=== PATIENT | male | born 1930 | race Caucasian/White ===

== ENCOUNTER → 2016-11-23 | Outpatient (CLI) | payer MEDICARE, OTHER ==
[~2016-11-23] MED LIST: ACET-1359 PO; ASPI-781 PO; CELE200C PO; EZET1TAB50 PO; FAMO-18 PO; IODIXANOL LOCM 100 ML BTL ONE; IODIXANOL LOCM 50 ML BTL ONE; LANS15CA PO; LANS30TA6 PO; LISI-329 PO; METO1TAB13 PO; METO25TA7 PO; NITROGLYCERIN AEROSOL (4.9 GM) ONE; OXYC-281 PO; SOD CHLORIDE 0.9% 100 ML ONE; UDREG PO
[2016-11-23 09:22] LABS: CREATININE 1.57 mg/dl (0.61-1.24)
--- NOTE | 2016-11-23 21:00 | RADRPT ---
PROCEDURE: CTA OF THE HEART AND CORONARY ARTERIES WITH CONTRAST CT CALCIUM SCORE CLINICAL INDICATION: Coronary artery disease, chest pain COMPARISON: CT chest 09/26/2013 TECHNIQUE: CT calcium score performed without intravenous contrast. Multiphasic ECG-gated volumetri c acquisition from the ascending aorta to the diaphragm performed with intravenous contrast on a hig h-resolution multi detector scanner with multiphasic reconstructions. Multiplanar reconstructions, t hree-dimensional reconstructions, as well as maximal intensity projection images are produced and re viewed. One or more of the following dose reduction techniques were used: Automated exposure control ; Adjustment of the mA and/or kV according to patient size; Use of iterative reconstruction techniqu e; ECG dose modulation. CTDI = 11, 106, 69 mGy. DLP = 1689 mGy-cm. Stenosis classification of vessels greater than 1.5 mm in diameter: None0% Minimal1-24% Fxum66-69% Icdmwyuv15-05% Njghzl83-64% Oezgxsxm748% (When a vessel appears focally occluded with distal reconstitution there may be trac e patency which is below the resolution of the examination or collateral pathways may exist.) CONTRAST: 100 mL of Omnipaque 350 intravenously without adverse event. FINDINGS: CORONARY CT ANGIOGRAM: Overall quality of the CT angiographic examination is partially degraded due to premature contractio ns and very elevated calcium score. Normal origins of the coronary arteries are present. The coronary artery system is right dominant. Total calcium score: 2067.5 excluding a proximal right coronary artery stent Right Coronary Artery: Dense plaque at the origin of the right coronary artery obscures visualizatio n of the lumen and is subjectively concerning for a 50% stenosis. Attenuation artifact within the p atients proximal right coronary artery 16 mm long stent obscures visualization of the lumen, degree of stenosis is indeterminate. Artifact from premature contractions obscures visualization of the mi d segment of the vessel were partially circumferential plaques are present. The distal portion of t he vessel is relatively well visualized with a focal noncalcified plaque producing 50% stenosis. The posterior lateral branch appears to enhance normally. The posterior descending branch is too small to accurately characterize. Left Main Coronary Artery: Calcified plaque throughout the vessel produces less than 10% stenosis. Left Anterior Descending Coronary Artery: The proximal and mid segments of the vessel are diffusely diseased with multifocal plaques producing predominately less than 10% stenosis. 30 mm from the maxine gin of the vessel is an apparent focal noncalcified plaque which produces 50 - 70% stenosis Visualized septal and diagonal branches: These are small in caliber but only demonstrate minimal irr egularities. Left Circumflex Coronary Artery: 25 - 50% stenosis of the proximal segment of the vessel 7 mm distal to its origin. The mid and distal segments of the vessel are very small in caliber but do not demo nstrate any significant abnormalities. Visualized obtuse marginal branches: The first obtuse marginal branch is nondominant vessel to the f ree wall and a demonstrates mild diffuse irregularities of up to 25%. Normal appearance of the pericardium. No pericardial effusion. Minimal thickening with small calcifications of the trileaflet aortic valve.. Minimal thickening of the mitral valve leaflets without prolapse. Myocardial attenuation appears within normal limits. Left atrial appendage is well opacified. No evidence of intracardiac mass or thrombus. EXTRACARDIAC FINDINGS: Thoracic aorta: Normal caliber. Mild atherosclerotic changes are present. Pulmonary vessels: Normal caliber of the main pulmonary artery with dilatation of the branch pulmona ry arteries measuring up to 3.5 cm on the right and 2.9 cm on the left. This may represent early ch anges of pulmonary artery hypertension. Chest: A few small calcified granulomas are present within the left upper lobe. Small calcified med iastinal lymph nodes are present. Mild peribronchial thickening compatible with small airways disea se is evident. No acute air space infiltrates. Abdomen: Mild - moderate hiatal hernia with superimposed para esophageal fat herniation. IMPRESSION: Overall quality of the CT angiographic examination is partially degraded due to premature contractio ns and severely elevated calcium score. Total calcium score: 2067.5 excluding a proximal right coronary artery stent Right Coronary Artery: Dense plaque at the origin of the right coronary artery obscures visualizatio n of the lumen and is subjectively concerning for a 50% stenosis. Attenuation artifact within the p atients proximal right coronary artery 16 mm long stent obscures visualization of the lumen, degree of stenosis is indeterminate. Artifact from premature contractions obscures visualization of the mi d segment of the vessel were partially circumferential plaques are present. The distal portion of t he vessel is relatively well visualized with a focal noncalcified plaque producing 50% stenosis. Left Main Coronary Artery: Calcified plaque throughout the vessel produces less than 10% stenosis. Left Anterior Descending Coronary Artery: The proximal and mid segments of the vessel are diffusely diseased with multifocal plaques producing predominately less than 10% stenosis. 30 mm from the maxine gin of the vessel is an apparent focal noncalcified plaque which produces 50 - 70% stenosis Left Circumflex Coronary Artery: 25 - 50% stenosis of the proximal segment of the vessel 7 mm distal to its origin. The mid and distal segments of the vessel are very small in caliber but do not demo nstrate any significant abnormalities. Given these findings additional imaging with nuclear perfusion imaging SPECT/PET or as clinically in dicated conventional coronary angiography suggested for further evaluation. RPTAT: AADD .Ravi Corado MD, MD Date Time Electronically viewed and signed by .Ravi Corado MD, MD on 11/23/2016 21:00 .B/
== END | disposition home or self-care (01) ==
LOC: LAB 08:21
PROVIDERS: ATTEND Internal Medicine Interventional Cardiology
DX: I25.10 Atherosclerotic heart disease of native coronary artery without angina pectoris (principal)
CPT/HCPCS: 75571; 75574; 82565; 84520; Q9967

== ENCOUNTER → 2017-02-23 | Outpatient (CLI) | payer MEDICARE, OTHER ==
[~2017-02-23] MED LIST changes: -IODIXANOL LOCM 100 ML BTL ONE; -IODIXANOL LOCM 50 ML BTL ONE; +IOHEXOL 100 ML ONE
[2017-02-23 10:33] LABS: CREATININE 1.29 mg/dl (0.61-1.24)
--- NOTE | 2017-02-23 13:36 | RADRPT ---
PROCEDURE: CTA OF THE HEART AND CORONARY ARTERIES WITH CONTRAST CT CALCIUM SCORE CLINICAL INDICATION: Shortness of breath, reported history of coronary stent. COMPARISON: CT coronary angiogram 11/23/2016 TECHNIQUE: CT calcium score performed without intravenous contrast. Multiphasic ECG-gated volumetri c acquisition from the ascending aorta to the diaphragm performed with intravenous contrast on a hig h-resolution multi detector scanner with multiphasic reconstructions. Multiplanar reconstructions, t hree-dimensional reconstructions, as well as maximal intensity projection images are produced and re viewed. One or more of the following dose reduction techniques were used: Automated exposure control ; Adjustment of the mA and/or kV according to patient size; Use of iterative reconstruction techniqu e; ECG dose modulation. CTDI = 80, 29, 69 mGy. DLP = 1120 mGy-cm. Stenosis classification of vessels greater than 1.5 mm in diameter: None0% Minimal1-24% Kqrf37-75% Yapbwemj41-26% Ggvtih54-72% Amzllubz822% (When a vessel appears focally occluded with distal reconstitution there may be trac e patency which is below the resolution of the examination or collateral pathways may exist.) CONTRAST: 100 mL of Omnipaque 350 intravenously without adverse event. FINDINGS: CORONARY CT ANGIOGRAM: Overall quality of the CT angiographic examination is markedly degraded due to irregular heart rate during the examination. Normal origins of the coronary arteries are present. The coronary artery system is right dominant. Total calcium score: 2555; differences likely due to motion artifact. Right Coronary Artery: Markedly degraded visualization of the proximal and mid segments of the vesse l. Partially visualized distal segment of the vessel demonstrates small multifocal plaques which pr oduce less than 25% stenosis. Minimal irregularities of the posterior descending and posterior later al branches. Left Main Coronary Artery: Calcified plaque throughout the vessel does not appear to produce signifi cant stenosis. Left Anterior Descending Coronary Artery: Minimal - mild diffuse calcified plaque is present through out the proximal and mid segments of the vessel. The previously suspected noncalcified plaque at 30 mm from the origin of the vessel is not visualized and may have been artifactual. Degraded visuali zation of the mid - distal segments of the vessel due to irregular heart rate. Visualized septal and diagonal branches: Small-caliber vessels which demonstrate minimal irregularit ies. Left Circumflex Coronary Artery: Minimal - mild irregularities of the partially visualized proximal segment of vessel. Visualization of the mid and distal segments is markedly degraded. Visualized obtuse marginal branches: Not adequately visualized. Normal appearance of the pericardium. No pericardial effusion. Minimal thickening and small calcifications of the trileaflet aortic valve. Minimal thickening with out evidence of prolapse on systolic gated images. Myocardial attenuation appears within normal limits. Left atrial appendage is well opacified. No evidence of intracardiac mass or thrombus. EXTRACARDIAC FINDINGS: Thoracic aorta: Normal caliber. Pulmonary vessels: Normal caliber pulmonary arteries. No evidence of central filling defect. Conven tional pulmonary venous return. Chest: No acute air space infiltrates. Mild peribronchial thickening is present suggestive of chron ic small airways disease. No mediastinal lymphadenopathy. Small calcified left hilar lymph nodes. Abdomen: Mild - moderate hiatal hernia again noted with para esophageal fat herniation. IMPRESSION: Overall quality of the CT angiographic examination is markedly degraded due to irregular heart rate during the examination. Total calcium score: 2555; differences likely due to motion artifact. Right Coronary Artery: Markedly degraded visualization of the proximal and mid segments of the vesse l. Partially visualized distal segment of the vessel demonstrates small multifocal plaques which pr oduce less than 25% stenosis. Left Main Coronary Artery: Calcified plaque throughout the vessel does not appear to produce signifi cant stenosis. Left Anterior Descending Coronary Artery: Minimal - mild diffuse calcified plaque is present through out the proximal and mid segments of the vessel. The previously suspected noncalcified plaque at 30 mm from the origin of the vessel is not visualized and may have been artifactual. Degraded visuali zation of the mid - distal segments of the vessel due to irregular heart rate. Left Circumflex Coronary Artery: Minimal - mild irregularities of the partially visualized proximal segment of vessel. Visualization of the mid and distal segments is markedly degraded. Given extensively degraded visualization additional imaging with nuclear perfusion imaging SPECT/PET or as clinically indicated conventional coronary angiography suggested for further evaluation. RPTAT: AADD .Ravi Corado MD, Date Time Electronically viewed and signed by .Ravi Corado MD, MD on 02/23/2017 13:36 .B/
== END | disposition home or self-care (01) ==
LOC: LAB 09:24
PROVIDERS: ATTEND Internal Medicine Interventional Cardiology
DX: Z01.818 Encounter for other preprocedural examination (principal)
CPT/HCPCS: 75574; 82565; 84520; Q9967

== ENCOUNTER 2017-09-14 18:23 | Observation (INO) | END 2017-09-15 15:50 | disposition home or self-care (01) ==

== ENCOUNTER 2018-11-08 11:05 | Day surgery (SDC) | payer MEDICARE, OTHER ==
[2018-11-08] VITALS (12 sets, daily range): BP systolic 135–159; BP diastolic 66–88; PULSE 79–98; RESP 13–18; Ht 177.8 cm; Wt 127.0 kg
[~2018-11-08] VITALS: Ht 177.8 cm; Wt 127.0 kg
[~2018-11-08 11:05] MED LIST changes: -ACET-1359 PO; -ASPI-781 PO; +ASPI81TA52 PO; +ATOR-2 PO; -CELE200C PO; +CLOP75TA27 PO; +EZET10TA31 PO; -EZET1TAB50 PO; -FAMO-18 PO; -IOHEXOL 100 ML ONE; +ISOS60TA PO; -LANS15CA PO; +LANS30CA47 PO; -LANS30TA6 PO; -LISI-329 PO; +LOSA25TA2 PO; +MELO7.5T38 PO; +METO-319 PO; -METO1TAB13 PO; -METO25TA7 PO; +NITR0.4T39 SL; -NITROGLYCERIN AEROSOL (4.9 GM) ONE; -OXYC-281 PO; -SOD CHLORIDE 0.9% 100 ML ONE; -UDREG PO
[2018-11-08] MEDS ORDERED: APIX5TAB PO (11:36)
[2018-11-08] MEDS ORDERED: LORA10CA PO (11:37)
[2018-11-08] MEDS ORDERED: CARV12.579 PO (11:37)
[2018-11-08] MEDS ORDERED: MULT-861 PO (11:39)
[2018-11-08] MEDS ORDERED: ASCO500C7 PO (11:39)
[2018-11-08] MEDS ORDERED: OMEG-135 PO (11:40)
[2018-11-08] MEDS ORDERED: FENTAnyl 50 MCG/ML VIAL ONE (14:30)
[2018-11-08] MEDS ORDERED: MIDAZOLAM 1 MG/ML 2 ML INJ ONE (14:30)
[2018-11-08] MEDS ORDERED: IODIXANOL LOCM 100 ML BTL ONE (14:51)
[2018-11-08] MEDS ORDERED: LIDOCAINE 1% (MDV) 20 ML INJ ONE (14:51)
[2018-11-08] MEDS ORDERED: SOD CHLORIDE 0.9% 1,000 ML IV SCH (15:00)
[2018-11-08] MEDS ORDERED: AL HYDROX/MG HYDROX/SIMETH 30 ML CUP PO PRN (15:00)
[2018-11-08] MEDS ORDERED: ONDANSETRON 4 MG INJ IV PRN (15:00)
[2018-11-08] MEDS ORDERED: ACETAMINOPHEN 325 MG TAB PO PRN (15:00)
--- NOTE | 2018-11-08 15:12 | OPR ---
Date/Time of Note Date/Time of Note DATE: 11/08/18 TIME: 15:03 Operative Report Preoperative Diagnosis CAD, ANGINA CLASS ii Postoperative Diagnosis 3VCAD WITH PATENT STENTS Operation/Procedure Performed [facility] Surgeon see signature line Senior Stock Plan Administrator NONE Anesthesia Type: moderate sedation Estimated Blood Loss: minimal Transfusion none Specimen NONE Grafts/Implants none Complications none Procedure Description Procedure Date: Preoperative Diagnosis angina, hx of PCI Postoperative Diagnosis 3VCAD with patent stents Operation/Procedure Performed Left heart cath right and left coronary angiography supervision/interpretation of right and left coronary angiography right femoral artery approach Surgeon: Leticia Senior Stock Plan Administrator: none Anesthesia Type: local, moderate sedation Estimated Blood Loss: minimal Transfusion: none Specimen: none Grafts/Implants: none Tubes/Drains: Complications: none Pt Condition Post Procedure: stable Procedure Description The patient broght to the laboratory clerk after informed consent obtained. The right femoral artery was cannulated using the seldinger technique and a 6F sheath was inserted. Thereafter, bilateral selective angiography was performed using a JR4 and JL4 catheters , respectively. The procedure was tolerated well without complication. Findings: LM - 20% distal, distal calcification LAD - mild disease, prox stent patent, mid stent patent CX - Ostial - heavily calcified, no critical disease, Arnav 3 flow RCA -Prox stent patent, distal to stent 50% Plan: Medical Therapy KARSON ELLIOTT MD Nov 08, 2018 15:12
--- NOTE | 2018-11-08 15:24 | RADRPT ---
Vent Rate: 101 bpm RR Interval: 0 msec KS Interval: 0 msec QRS Duration: 86 msec QT Interval: 374 msec QTC Interval: 484 msec P-R-T [place]: 0 - 4 - 31 degrees Atrial fibrillation with rapid ventricular response Abnormal ECG Electronically Signed By: Harvinder Rowell
== END 2018-11-08 18:49 | disposition home or self-care (01) ==
LOC: SDS 11:05
PROVIDERS: ATTEND Internal Medicine Interventional Cardiology
DX: I25.119 Atherosclerotic heart disease of native coronary artery with unspecified angina pectoris (principal); E78.5 Hyperlipidemia, unspecified; I10 Essential (primary) hypertension; I48.0 Paroxysmal atrial fibrillation; Z79.02 Long term (current) use of antithrombotics/antiplatelets
CPT/HCPCS: 80048; 85025; 85610; 85730; 93005; 93454; C1887; C1894; J1644; J2250; J3010; Q9967